=== PATIENT | female | born 1995 | race Caucasian/White ===

== ENCOUNTER 2017-11-19 21:33 | Emergency (ER) | payer MEDICAID ==
[2017-11-19 21:41] VITALS: BP 119/68
--- NOTE | 2017-11-19 21:57 | ED Physician Documentation ---
History of Present Illness - Stated complaint Stated Complaint: FEM - Chief complaint Chief Complaint: General - History obtained from History obtained from: Patient - History of Present Illness Timing: Other (For about 6 months or even may be a little more she been having problems with pretty much consistent vaginal discharge and itching. She is sexually active but is not concerned about STDs per se. She was treated in May with both Flagyl and Diflucan without either temporary or lasting change in her symptoms. She notes that the symptoms do not change throughout her cycle and she recently changed from oral contraceptive pills to Nexplanon with Also no change in her symptoms. She denies pelvic pain.) Review of Systems Constitutional: reports: Reviewed and negative Cardiac: reports: Reviewed and negative Respiratory: reports: Reviewed and negative PD PAST MEDICAL HISTORY - Past Medical History Past Medical History: No - Past Surgical History Past Surgical History: Yes HEENT: Tonsil/Adenoidectomy - Present Medications Home Medications: Ambulatory Orders Medication Instructions Recorded Confirmed Phenazopyridine [Pyridium] 100 mg PO Q8H PRN #10 tablet 10/26/12 cephALEXin [Keflex] 500 mg PO Q6H #28 capsule 10/26/12 - Allergies Allergies/Adverse Reactions: Allergies Allergy/AdvReac Type Severity Reaction Status Date / Time Sulfa (Sulfonamide Allergy Mild Nausea Verified 11/19/17 21:40 Antibiotics) - Social History Does the pt smoke?: No Smoking Status: Never smoker Does the pt drink ETOH?: No Does the pt have substance abuse?: No - Immunizations Immunizations are current?: Yes PD ED PE NORMAL - Vitals Vital signs reviewed: Yes - General General: Alert and oriented X 3, No acute distress - Abdomen Abdomen: Soft, Non tender - Female Female : [employer] present ([employer]), Other (Moderate pretty thick white discharge with a little bit of cervicitis but no bimanual or motion tenderness.) - Neuro Neuro: Alert and oriented X 3, Normal speech - Psych Psych: Normal mood, Normal affect Results - Vitals Vitals: Vital Signs - 24 hr 11/19/17 21:37 Temperature 36.6 C Heart Rate 70 Respiratory 16 Rate Blood Pressure 119/68 O2 Saturation 100 Oxygen O2 Source Room air - Labs Labs: Microbiology 11/19/17 22:10 Wet Prep - Final Vaginal Laboratory Tests 11/19/17 11/19/17 21:45 21:50 Urine Color YELLOW Urine Clarity CLEAR Urine pH 7.5 Ur Specific [place] 1.015 1.015 Urine Protein NEGATIVE Urine Glucose (UA) NEGATIVE Urine Ketones NEGATIVE Urine Occult Blood NEGATIVE Urine Nitrite NEGATIVE Urine Bilirubin NEGATIVE Urine Urobilinogen 0.2 (NORMAL) Ur Leukocyte Esterase NEGATIVE Ur Microscopic Review NOT INDICATED Urine Culture Comments NOT INDICATED Urine HCG, Qual NEGATIVE PD MEDICAL DECISION MAKING - ED course ED course: 22-year-old sexually active female presents with persistent vaginitis of unclear etiology that is been going on for about 7 months. She does have some cervicitis on exam but no tenderness and her wet mount was negative for yeast, BV, trichomoniasis. She tried to make an appointment with a local gynecology office but The first available appointment was after she leaves and she is moving to [place] in a few weeks. She has never had a Pap smear. I have emailed some of the local fire watcher to see if they can get her in an expedited fashion. - Sepsis Event Vital Signs: Vital Signs - 24 hr 11/19/17 21:37 Temperature 36.6 C Heart Rate 70 Respiratory 16 Rate Blood Pressure 119/68 O2 Saturation 100 Oxygen O2 Source Room air Departure - Departure Disposition: 01 Home, Self Care Clinical Impression: Vaginitis Qualifiers: Chronicity: acute Qualified Code(s): N76.0 - Acute vaginitis Condition: Good Record reviewed to determine appropriate education?: Yes Comments: As discussed, I think the next step for you to would be to follow-up with a fire watcher for a Pap smear and specialty exam. I have emailed some of the gynecologists here to see if they can get you in before you leave for [place], [facility] would [facility] another option or following up in [place] in a few weeks would be okay to.
[2017-11-19 22:04] LABS: BILIRUBIN,URINE NEGATIVE (NEGATIVE); GLUCOSE, URINE (UA) NEGATIVE (NEGATIVE); KETONES,URINE (UA) NEGATIVE (NEGATIVE); LEUKOCYTE ESTERASE, URINE NEGATIVE (NEGATIVE); NITRITE,URINE NEGATIVE (NEGATIVE); OCCULT BLOOD,URINE NEGATIVE (NEGATIVE); PH,URINE 7.5 PH (5.0-7.5); PROTEIN,URINE NEGATIVE (NEGATIVE); UROBILINOGEN,URINE 0.2 (NORMAL) E.U./dL (NORMAL)
[2017-11-19 22:06] LABS: CLARITY,URINE CLEAR (CLEAR)
[2017-11-19 22:06] LABS: HCG UR QUAL NEGATIVE
== END 2017-11-19 22:50 | disposition home or self-care (01) ==
LOC: ED 21:33
DX: N76.0 Acute vaginitis (principal)
CPT/HCPCS: 81001; 81003; 81025; 87086; 87210; 87491; 87591; 99283